=== PATIENT | female | born 1950 | race Caucasian/White ===

== ENCOUNTER 2017-11-19 05:09 | Day surgery (SDC) | payer MEDICARE, OTHER ==
[~2017-11-19 05:09] MED LIST: ACIDOPHILUS PO; CHAGA PO; FISH1000 PO; MAGN500T4 PO; METO25TA3 PO; NEOR100 PO; NORV5TAB PO; PRED5 PO; RANI150 PO; TAB-TAB PO; VITA100017 PO; VITA100018 PO
[2017-11-19] MEDS ORDERED: POVIDONE IODINE 5% (ANTISEPSIS KIT) 4 APPLICATIONS EACH NARE SCH (06:15)
[2017-11-19] MEDS ORDERED: NS 1000 ML IV SCH (06:15)
[2017-11-19] MEDS ORDERED: MUPIROCIN 2% OINT 1 APPLIC/GM SYR NASAL SCH (06:15)
[2017-11-19] MEDS ORDERED: CHLORHEXIDINE GLUCONATE 2 % 1 PACK (2 CLOTHS) TOPICAL SCH (06:15)
--- NOTE | 2017-11-19 08:05 | MA ---
cc: Paresh Christian MD DATE: 11/19/2017 DATE OF PROCEDURE: 11/19/2017 INDICATION FOR PROCEDURE: Cerebrovascular accident. PROCEDURES PERFORMED: 1. 15 minutes moderate IV sedation. 2. Loop recorder insertion. DESCRIPTION OF PROCEDURE: After informed consent was obtained, 50 mcg of fentanyl was given for moderate IV sedation. Next, a [employer] Reve[employer] LINQ, loop recorder was inserted subcutaneously to the left chest. The patient tolerated the procedure well without any apparent complications. Tachybrady pause and atrial fibrillation detection was enabled. The initial R-wave was 0.52 millivolts. The serial number was [id number]. Paresh Christian MD RENUKA/KD , 07:57 AM , 08:05 AM
[2017-11-19] MEDS ORDERED: TYLE325T PO (08:08)
[2017-11-19] MEDS ORDERED: SENNSYP PO (08:08)
[2017-11-19] MEDS ORDERED: AZAT50 PO (08:08)
[2017-11-19] MEDS ORDERED: CARV6.252 PO (08:08)
[2017-11-19] MEDS ORDERED: PRED5TAB PO (08:08)
[2017-11-19] MEDS ORDERED: BACT400T PO (08:08)
[2017-11-19] MEDS ORDERED: CYCL100C6 PO (08:08)
[2017-11-19] MEDS ORDERED: VALG1TAB PO (08:08)
[2017-11-19] MEDS ORDERED: FAMO20TA2 PO (08:08)
== END 2017-11-19 09:45 | disposition home or self-care (01) ==
LOC: HDIC 05:09 → HDOC 05:09
PROVIDERS: ATTEND Nuclear Medicine Nuclear Cardiology
DX: I63.9 Cerebral infarction, unspecified (principal)
CPT/HCPCS: 33282; C1764; J3010; J7030

== ENCOUNTER 2017-12-13 12:13 | Emergency (ER) | payer OTHER, MEDICARE ==
[~2017-12-13] VITALS: Ht 171.4 cm; Wt 82.0 kg
[~2017-12-13 12:13] MED LIST changes: -ACIDOPHILUS PO; +AZAT50 PO; +BACT400T PO; +CARV6.252 PO; +CYCL100C6 PO; +FAMO20TA2 PO; -FISH1000 PO; -MAGN500T4 PO; -METO25TA3 PO; -NEOR100 PO; -NORV5TAB PO; -PRED5 PO; +PRED5TAB PO; -RANI150 PO; +SENNSYP PO; -TAB-TAB PO; +TYLE325T PO; +VALG1TAB PO; -VITA100017 PO; -VITA100018 PO
[2017-12-13 12:29] VITALS: BP 178/78; PULSE 75; RESP 15; TEMP 97.7; O2SAT 98
[2017-12-13 12:33] VITALS: BP 178/78; PULSE 79; RESP 15; TEMP 97.7; O2SAT 98
[2017-12-13] MEDS ORDERED: FAMO1TAB73 PO (12:39)
[2017-12-13] MEDS ORDERED: CYCL100C6 PO (12:39)
[2017-12-13] MEDS ORDERED: ASPI-183 PO (12:40)
[2017-12-13] MEDS ORDERED: VITATAB11 PO (12:40)
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
[2017-12-13] MEDS ORDERED: BACL20TA PO (15:11)
[2017-12-13] MEDS ORDERED: TRAM50 PO (15:11)
== END 2017-12-13 15:50 | disposition home or self-care (01) ==
LOC: NEPD 12:13
DX: S16.1XXA Strain of muscle, fascia and tendon at neck level, initial encounter (principal); S39.012A Strain of muscle, fascia and tendon of lower back, initial encounter; V89.2XXA Person injured in unspecified motor-vehicle accident, traffic, initial encounter
CPT/HCPCS: 72125; 72128; 72131